=== PATIENT | male | born 1940 | race Caucasian/White ===

== ENCOUNTER 2017-04-01 14:45 | Inpatient (IN) ==
[2017-04-01 15:58] LABS: Basophils % 0.2 % (0.0-0.8); Eosinophils # 0.2 10*3/uL (0.0-0.87); Eosinophils % 2.6 % (0.00-10.9); Hematocrit 23.1 VOL% (42.0-52.0); Hemoglobin 6.8 GM/DL (14.0-18.0); Immature Granulocytes % 0.2 %; Immature Granulocytes Absolute 0.01 #; Lymphocytes # 0.9 10*3/uL (1.4-4.0); Lymphocytes % 15.4 % (21.2-54.2); Mean Corpuscular HGB Conc 29.4 GM/DL (32-36); Mean Corpuscular Hemoglobin 22 PG (27-34); Mean Corpuscular Volume 73.1 FL (87-102); Mean Platelet Volume 10.4 FL (9.6-12.0); Monocytes # 0.6 10*3/uL (0.11-0.8); Monocytes % 9.9 % (1.7-12.7); Neutrophils # 4.1 10*3/uL (1.4-7.4); Neutrophils % 71.7 % (38.7-73.9); Platelet Count 328 T/CUMM (130-400); Red Blood Count 3.16 MC/CUMM (3.8-5.5); White Blood Count 5.8 T/CUMM (4-12)
[2017-04-01 16:00] LABS: INR 0.9; Partial Thromboplastin Time 23.2 SECS (0-40)
[2017-04-01 16:27] LABS: Troponin I Only < 0.015 NG/ML (0.00-0.045)
[2017-04-01 16:35] LABS: Alanine Aminotransferase 49 U/L (16-61); Albumin 3.3 G/DL (3.4-5.0); Alkaline Phosphatase 215 U/L (45-117); Aspartate Amino Transferase 44 U/L (0-37); Bilirubin,Total < 0.39 MG/DL (0.2-1.0); Blood Urea Nitrogen 25 MG/DL (7-18); Calcium 8.6 MG/DL (8.5-10.1); Glucose 91 MG/DL (74-106); Potassium 4.1 MMOL/L (3.5-5.1); Sodium 143 MMOL/L (136-145); Total Protein 6.5 G/DL (6.4-8.3)
[2017-04-01] MEDS ORDERED: ONDANSETRON 4 MG/2 ML VIAL IV PRN (17:30)
[2017-04-01] MEDS ORDERED: SODIUM CHLORIDE 0.9% 1,000 ML IV PRN ×2 (17:30→17:31)
[2017-04-01] MEDS: PANTOPRAZOLE 40 MG TABLET PO SCH (21:23)
[2017-04-02 06:51] LABS: Basophils % 0.2 % (0.0-0.8); Eosinophils # 0.2 10*3/uL (0.0-0.87); Eosinophils % 3.1 % (0.00-10.9); Hematocrit 25.4 VOL% (42.0-52.0); Immature Granulocytes % 0.4 %; Immature Granulocytes Absolute 0.02 #; Lymphocytes # 0.9 10*3/uL (1.4-4.0); Lymphocytes % 18.6 % (21.2-54.2); Mean Corpuscular HGB Conc 31.5 GM/DL (32-36); Mean Corpuscular Hemoglobin 24 PG (27-34); Mean Corpuscular Volume 75.8 FL (87-102); Mean Platelet Volume 10.6 FL (9.6-12.0); Monocytes # 0.5 10*3/uL (0.11-0.8); Monocytes % 10.3 % (1.7-12.7); Neutrophils # 3.2 10*3/uL (1.4-7.4); Neutrophils % 67.4 % (38.7-73.9); Platelet Count 253 T/CUMM (130-400); Red Blood Count 3.35 MC/CUMM (3.8-5.5); Red Cell Distribution Width 18.5 % (9.3-17.3); White Blood Count 4.8 T/CUMM (4-12)
[2017-04-02] MEDS ORDERED: PANTOPRAZOLE 40 MG VIAL IV SCH (09:00)
[2017-04-02] MEDS: PANTOPRAZOLE 40 MG TABLET PO SCH ×2 (09:08→21:52)
[2017-04-02] MEDS: ATORVASTATIN 20 MG TABLET PO SCH (09:08)
[2017-04-02] MEDS: METOPROLOL TARTRATE 25 MG TABLET PO SCH ×2 (09:08→21:52)
[2017-04-02] MEDS: CITALOPRAM 20 MG TABLET PO SCH (09:08)
[2017-04-02] MEDS: PRAMIPEXOLE 0.25 MG TABLET PO SCH (21:51)
[2017-04-03 06:20] LABS: % Iron Saturation 4.6 % (18-50); Ferritin 5.3 ng/ml (26-388)
[2017-04-03 07:03] LABS: Hepatitis B Surface Ab Result Negative; Hepatitis B Surface Ag Quant < 0.10 Index; Hepatitis B Surface Ag Result Negative (Negative); Hepatitis C Virus Ab Quant 0.05 Index; Hepatitis C Virus Ab Result Negative (Negative)
[2017-04-03] MEDS: CITALOPRAM 20 MG TABLET PO SCH (09:09)
[2017-04-03] MEDS: PANTOPRAZOLE 40 MG TABLET PO SCH ×2 (09:09→21:46)
[2017-04-03] MEDS: ATORVASTATIN 20 MG TABLET PO SCH (09:09)
[2017-04-03] MEDS: METOPROLOL TARTRATE 25 MG TABLET PO SCH ×2 (09:09→21:46)
[2017-04-03] MEDS ORDERED: BISACODYL 5 MG TABLET PO ONE (11:55)
[2017-04-03] MEDS ORDERED: POLYETHYLENE GLYCOL POWDER 255 GM BOTTLE PO ONE (14:03)
[2017-04-03] MEDS ORDERED: SODIUM CHLORIDE 0.9% 1,000 ML IV SCH (14:30)
[2017-04-03] MEDS: PRAMIPEXOLE 0.25 MG TABLET PO SCH (21:46)
[2017-04-04] MEDS ORDERED: MAGNESIUM CITRATE 300 ML BOTTLE PO ONE (03:30)
[2017-04-04 07:12] LABS: Calcium 8.8 MG/DL (8.5-10.1); Osmolality,Calculated 281.3 MOS/KG (273-304); Potassium 4.2 MMOL/L (3.5-5.1)
[2017-04-04 07:20] LABS: Basophils % 0.4 % (0.0-0.8); Eosinophils # 0.3 10*3/uL (0.0-0.87); Eosinophils % 4.9 % (0.00-10.9); Hematocrit 29.5 VOL% (42.0-52.0); Hemoglobin 9.2 GM/DL (14.0-18.0); Immature Granulocytes % 0.2 %; Immature Granulocytes Absolute 0.01 #; Lymphocytes # 1.2 10*3/uL (1.4-4.0); Lymphocytes % 21.7 % (21.2-54.2); Mean Corpuscular HGB Conc 31.2 GM/DL (32-36); Mean Corpuscular Hemoglobin 23 PG (27-34); Mean Corpuscular Volume 74.9 FL (87-102); Mean Platelet Volume 10.2 FL (9.6-12.0); Monocytes # 0.6 10*3/uL (0.11-0.8); Neutrophils # 3.3 10*3/uL (1.4-7.4); Neutrophils % 61.8 % (38.7-73.9); Platelet Count 288 T/CUMM (130-400); Red Blood Count 3.94 MC/CUMM (3.8-5.5); Red Cell Distribution Width 18.5 % (9.3-17.3); White Blood Count 5.3 T/CUMM (4-12)
[2017-04-04] MEDS ORDERED: ePHEDrine 50 MG/ML AMP ONE (08:27)
[2017-04-04] MEDS: PANTOPRAZOLE 40 MG TABLET PO SCH ×2 (10:02→20:57)
[2017-04-04] MEDS: METOPROLOL TARTRATE 25 MG TABLET PO SCH ×2 (10:02→20:57)
[2017-04-04] MEDS: CITALOPRAM 20 MG TABLET PO SCH (10:02)
[2017-04-04] MEDS: ATORVASTATIN 20 MG TABLET PO SCH (10:02)
[2017-04-04] MEDS: ASPIRIN EC 81 MG TABLET PO SCH (10:36)
[2017-04-04] MEDS: PRAMIPEXOLE 0.25 MG TABLET PO SCH (20:57)
[2017-04-05 06:22] LABS: Basophils % 0.3 % (0.0-0.8); Eosinophils # 0.2 10*3/uL (0.0-0.87); Eosinophils % 3.6 % (0.00-10.9); Hematocrit 28.4 VOL% (42.0-52.0); Hemoglobin 8.8 GM/DL (14.0-18.0); Immature Granulocytes % 0.3 %; Immature Granulocytes Absolute 0.02 #; Lymphocytes # 1.1 10*3/uL (1.4-4.0); Lymphocytes % 19.1 % (21.2-54.2); Mean Corpuscular Hemoglobin 23 PG (27-34); Mean Corpuscular Volume 75.1 FL (87-102); Mean Platelet Volume 10.4 FL (9.6-12.0); Monocytes # 0.5 10*3/uL (0.11-0.8); Monocytes % 9.2 % (1.7-12.7); Neutrophils # 3.9 10*3/uL (1.4-7.4); Neutrophils % 67.5 % (38.7-73.9); Platelet Count 263 T/CUMM (130-400); Red Blood Count 3.78 MC/CUMM (3.8-5.5); Red Cell Distribution Width 18.8 % (9.3-17.3); White Blood Count 5.8 T/CUMM (4-12)
[2017-04-05 06:53] LABS: Calcium 8.4 MG/DL (8.5-10.1); Potassium 4.3 MMOL/L (3.5-5.1)
[2017-04-05] MEDS: PANTOPRAZOLE 40 MG TABLET PO SCH ×2 (08:31→20:19)
[2017-04-05] MEDS: METOPROLOL TARTRATE 25 MG TABLET PO SCH ×2 (08:31→20:19)
[2017-04-05] MEDS: TICAGRELOR 90 MG TABLET PO SCH ×2 (08:31→21:00)
[2017-04-05] MEDS: CITALOPRAM 20 MG TABLET PO SCH (08:31)
[2017-04-05] MEDS: ATORVASTATIN 20 MG TABLET PO SCH (08:32)
[2017-04-05] MEDS: ASPIRIN EC 81 MG TABLET PO SCH (09:12)
[2017-04-05] MEDS ORDERED: SODIUM CHLORIDE 0.9% 1,000 ML IV PRN ×2 (09:30→09:31)
[2017-04-05] MEDS ORDERED: IRON DEXTRAN 25 MG in SYRINGE 1 EACH IV ONE ×2 (16:00→20:00)
[2017-04-05 16:51] LABS: Hematocrit 30.9 VOL% (42.0-52.0); Hemoglobin 9.5 GM/DL (14.0-18.0)
[2017-04-05] MEDS: PRAMIPEXOLE 0.25 MG TABLET PO SCH (20:19)
[2017-04-05] MEDS ORDERED: IRON DEXTRAN IV ONE (21:00)
[2017-04-05] MEDS ORDERED: SODIUM CHLORIDE 0.9% IV ONE (21:00)
[2017-04-06 05:47] LABS: Basophils % 0.5 % (0.0-0.8); Eosinophils # 0.3 10*3/uL (0.0-0.87); Eosinophils % 4.4 % (0.00-10.9); Hematocrit 31.5 VOL% (42.0-52.0); Hemoglobin 9.6 GM/DL (14.0-18.0); Immature Granulocytes % 0.5 %; Immature Granulocytes Absolute 0.03 #; Lymphocytes # 1.2 10*3/uL (1.4-4.0); Lymphocytes % 18.3 % (21.2-54.2); Mean Corpuscular HGB Conc 30.5 GM/DL (32-36); Mean Corpuscular Hemoglobin 24 PG (27-34); Mean Corpuscular Volume 78.2 FL (87-102); Mean Platelet Volume 10.7 FL (9.6-12.0); Monocytes # 0.6 10*3/uL (0.11-0.8); Monocytes % 9.4 % (1.7-12.7); Neutrophils # 4.2 10*3/uL (1.4-7.4); Neutrophils % 66.9 % (38.7-73.9); Platelet Count 258 T/CUMM (130-400); Red Blood Count 4.03 MC/CUMM (3.8-5.5); Red Cell Distribution Width 18.3 % (9.3-17.3); White Blood Count 6.3 T/CUMM (4-12)
[2017-04-06 06:15] LABS: Calcium 7.9 MG/DL (8.5-10.1); Osmolality,Calculated 279.7 MOS/KG (273-304); Potassium 4.7 MMOL/L (3.5-5.1)
[2017-04-06] MEDS ORDERED: LIDOCAINE 2% 5 ML VIAL ONE (08:08)
[2017-04-06] MEDS ORDERED: ETOMIDATE 20 MG/10 ML VIAL IV ONE (08:08)
[2017-04-06] MEDS ORDERED: PROPOFOL 200 MG/20 ML VIAL IV ONE (08:08)
[2017-04-06 08:09] VITALS: BP 136/79
[2017-04-06] MEDS: METOPROLOL TARTRATE 25 MG TABLET PO SCH (08:55)
[2017-04-06] MEDS: CITALOPRAM 20 MG TABLET PO SCH (08:55)
[2017-04-06] MEDS: ASPIRIN EC 81 MG TABLET PO SCH (08:55)
[2017-04-06] MEDS: ATORVASTATIN 20 MG TABLET PO SCH (08:55)
[2017-04-06] MEDS: TICAGRELOR 90 MG TABLET PO SCH (08:55)
[2017-04-06] MEDS: PANTOPRAZOLE 40 MG TABLET PO SCH (08:55)
== END 2017-04-06 11:25 | disposition home or self-care (01) | DRG 378 ==
LOC: N.ED 14:45 → N.EDINP 17:09 → N.TELEN 18:11
PROVIDERS: ADMIT Internal Medicine; ATTEND Internal Medicine